=== PATIENT | male | born 1995 | race American Indian/Alaskan Native ===

== ENCOUNTER 2019-03-13 23:44 | Emergency (ER) | payer BC ==
--- NOTE | 2019-03-14 00:24 | Emergency Department Report ---
ED General Adult HPI - General Chief complaint: Skin/Abscess/Foreign Body Stated complaint: LUMP ON LT SIDE LOWER SIDE Time Seen by Provider: 03/14/19 00:23 Source: patient Mode of arrival: Ambulatory Limitations: No Limitations - History of Present Illness Initial comments: 23-year-old male with no past medical history presents with the complaint of swe lling to the left abdominal region and left flank region which is worsened for the past month. Patient states she's noticed no improvement as he presented here for evaluation. Patient denies any nausea vomiting. Patient denies any recent travel outside the country. Patient denies dysuria or flank pain. Patient has had no bite. Patient denies any chest pain. Patient denies any recent night sweats or weight loss. - Related Data Allergies Allergy/AdvReac Type Severity Reaction Status Date / Time No Known Allergies Allergy Verified 03/14/19 00:57 ED Review of Systems ROS: Stated complaint: LUMP ON LT SIDE LOWER SIDE Other details as noted in HPI Constitutional: denies: chills, fever Eyes: denies: eye pain, eye discharge, vision change ENT: denies: ear pain, throat pain Respiratory: denies: cough, shortness of breath, wheezing Cardiovascular: denies: chest pain, palpitations Endocrine: no symptoms reported Gastrointestinal: abdominal pain. denies: nausea, diarrhea Genitourinary: other (flank pain). denies: urgency, dysuria, testicular pain, testicular mass Musculoskeletal: denies: back pain, joint swelling, arthralgia Skin: denies: rash, lesions Neurological: denies: headache, weakness, paresthesias Psychiatric: denies: anxiety, depression Hematological/Lymphatic: denies: easy bleeding, easy bruising ED Past Medical Hx - Past Medical History Previous Medical History?: No - Surgical History Past Surgical History?: Yes Hx Appendectomy: Yes - Social History Smoking Status: Never Smoker Substance Use Type: None ED Physical Exam - General Limitations: No Limitations General appearance: alert, in no apparent distress, other (awake) - Head Head exam: Present: atraumatic, normocephalic - Eye Eye exam: Present: normal appearance - ENT ENT exam: Present: mucous membranes moist - Neck Neck exam: Present: normal inspection - Respiratory Respiratory exam: Present: normal lung sounds bilaterally. Absent: respiratory distress - Cardiovascular Cardiovascular Exam: Present: regular rate, normal rhythm. Absent: systolic murmur, diastolic murmur, rubs, gallop - GI/Abdominal GI/Abdominal exam: Present: soft, normal bowel sounds, other (cystic lesions palpated around left lower quadrant and left flank region with no erythema or ecchymosis) - Rectal Rectal exam: Present: deferred - Extremities Exam Extremities exam: Present: normal inspection - Back Exam Back exam: Present: normal inspection - Neurological Exam Neurological exam: Present: alert, oriented X3 - Psychiatric Psychiatric exam: Present: normal affect, normal mood - Skin Skin exam: Present: warm, dry, intact, normal color. Absent: rash ED Course Vital Signs 03/13/19 23:49 Temperature 98.3 F Pulse Rate 74 Respiratory 14 Rate Blood Pressure 146/89 O2 Sat by Pulse 95 Oximetry ED Medical Decision Making - Lab Data Result diagrams: 03/14/19 00:39 03/14/19 00:39 - Medical Decision Making Patient is currently sleeping and in no acute distress. CT shows no acute intra-abdominal process. Patient be given outpatient follow-up with PCP. - Differential Diagnosis Mass; Dehyration; electrolyte abnormality; Critical care attestation.: If time is entered above; I have spent that time in minutes in the direct care of this critically ill patient, excluding procedure time. ED Disposition Clinical Impression: Abdominal pain, Cyst Disposition: DC-01 TO HOME OR SELFCARE Is pt being admited?: No Does the pt Need Aspirin: No Condition: Stable Instructions: Acute Abdominal Pain (ED), Abdominal Pain (ED) Time of Disposition: 04:21 Print Language: ESTONIAN
[2019-03-14 00:46] LABS: Hematocrit 43.2 % (35.5-45.6); Hemoglobin 14.7 gm/dl (11.8-15.2); Mean Corpuscular HGB Conc 34 % (32-34); Mean Corpuscular Volume 86 fl (84-94); Red Blood Count 5.06 M/mm3 (3.65-5.03); Red Cell Distribution Width 13.1 % (13.2-15.2)
[2019-03-14 01:04] LABS: Platelet Count 229 K/mm3 (140-440)
[2019-03-14] MEDS ORDERED: ONDANSETRON 4 MG/2 ML INJ IV ONE (01:07)
[2019-03-14] MEDS ORDERED: ONDANSETRON 4 MG/2 ML INJ ONE (01:07)
[2019-03-14 01:32] LABS: Alanine Aminotransferase 17 units/L (7-56); Albumin 4.1 g/dL (3.9-5); BUN/Creatinine Ratio 14; Blood Urea Nitrogen 14 mg/dL (9-20); Hemolysis Index 14
--- NOTE | 2019-03-14 03:35 | Cat Scan Report ---
CT abdomen pelvis w con INDICATION / CLINICAL INFORMATION: abdominal and flank pain. TECHNIQUE: Axial CT imaging of abdomen and pelvis was obtained with IV contrast. Oral contrast also given to the patient. Coronal and sagittal reformatted imaging obtained and reviewed. All CT scans at this [facility] are performed using CT dose reduction for ALARA by means of automated exposure control. COMPARISON: None available. FINDINGS: CT abdomen with contrast demonstrates normal appearance of the liver, spleen, pancreas, kidneys, and adrenal glands. Gallbladder is collapsed. No biliary dilatation. CT pelvis with contrast is unremarkable. No pelvic mass, free fluid, or focal inflammatory change. The appendix is visualized and is of normal caliber and appearance. No evidence of appendicitis. GI t ract is grossly unremarkable, other than moderate amount retained stool throughout the colon/distal s mall bowel. Visualized lung bases are clear. No significant osseous abnormality. IMPRESSION: 1. No acute abnormality of the abdomen or pelvis. 2. Moderate amount retained stool suggesting mild constipation. Signer Name: Francia Hernandez MD Signed: 03/14/2019 3:30 AM Workstation Name: [id number]
[2019-03-14 04:47] VITALS: BP 135/71
== END 2019-03-14 04:47 | disposition home or self-care (01) ==
LOC: ED 23:44
DX: L72.8 Other follicular cysts of the skin and subcutaneous tissue (principal); R10.9 Unspecified abdominal pain
CPT/HCPCS: 36415; 74177; 80053; 85027; 96374; 99284; J2405; Q9963; Q9967

== ENCOUNTER 2021-08-02 12:36 | Emergency (ER) | payer BC, OTHER ==
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
[2021-08-02 17:03] VITALS: BP 136/87
== END 2021-08-02 17:03 | disposition home or self-care (01) ==
LOC: ED 12:36
DX: M79.605 Pain in left leg (principal); M54.9 Dorsalgia, unspecified; M54.2 Cervicalgia; Z98.890 Other specified postprocedural states; V89.2XXA Person injured in unspecified motor-vehicle accident, traffic, initial encounter; Y93.89 Activity, other specified; Y92.89 Other specified places as the place of occurrence of the external cause; Y99.8 Other external cause status
CPT/HCPCS: 99282